=== PATIENT | female | born 1985 | race Caucasian/White ===

== ENCOUNTER 2017-05-16 16:27 | Emergency (ER) | payer OTHER ==
[~2017-05-16] VITALS: Ht 170.2 cm; Wt 80.0 kg
[2017-05-16 19:00] VITALS: BP 134/83
[2017-05-16] MEDS ORDERED: ADDERALL XR30 MG PO (19:16)
[2017-05-16] MEDS ORDERED: ADDERALL20 MG PO (19:17)
== END 2017-05-16 19:00 | disposition home or self-care (01) | DRG 951 ==
LOC: ED 16:27
DX: Z20.1 Contact with and (suspected) exposure to tuberculosis (principal); Y92.89 Other specified places as the place of occurrence of the external cause